=== PATIENT | female | born 1965 | race Caucasian/White ===

== ENCOUNTER → 2021-08-05 14:14 | Outpatient (CLI) | payer OTHER, SELFPAY ==
--- NOTE | ~2021-08-05 | US_ITS ---
EXAMINATION: US thyroid EXAM DATE: 08/05/2021 14:37 INDICATION: Nontoxic single thyroid nodule TECHNIQUE: Multiple grayscale and Doppler images of the thyroid were obtained (by a technologist who performed the scan) and subsequently reviewed. Individual nodules and recommendations may be reporte d in accordance with TI-RADS system as designated by the 2017 ACR White Paper TI-RADS committee. The re is no prior study for comparison. FINDINGS: The right lobe of the thyroid measures 4.8 x 2.0 x 1.8 cm, the left lobe measuring 3.8 x 1.6 x 1.5 cm , mildly enlarged. There is diffusely heterogeneous hypervascular thyroid parenchyma. No focal thyroi d nodule identified. IMPRESSION: Mildly hypervascular and enlarged thyroid. Reviewed, dictated and finalized at location A.
== END ==
PROVIDERS: PCP Registered Nurse; Visit Provider Registered Nurse
DX: E04.1 Nontoxic single thyroid nodule (principal)
CPT/HCPCS: 76536